=== PATIENT | male | born 2000 | race Two or more races ===

== ENCOUNTER 2021-02-16 13:28 | Emergency (ER) | payer OTHER ==
[~2021-02-16] VITALS: Ht 182.9 cm; Wt 104.3 kg
[2021-02-16 13:36] VITALS: BP 137/69
--- NOTE | 2021-02-16 13:52 | NUR ---
MEDICALLY CLEARED BY ERMD PROVIDER. DISCHARGE TO LAW ENFORCEMENT IN STABLE CONDITION.
== END 2021-02-16 13:54 ==
LOC: ER 13:31
DX: Z02.89 Encounter for other administrative examinations (principal); Y08.89XA Assault by other specified means, initial encounter; Y93.89 Activity, other specified; Y92.89 Other specified places as the place of occurrence of the external cause; Y99.8 Other external cause status